=== PATIENT | female | born 1960 | race Caucasian/White ===

== ENCOUNTER 2019-12-07 08:03 | Day surgery (SDC) | payer MEDICARE, MEDICAID ==
[2019-11-30 14:37] LABS: BASOPHILS # (AUTO) 0.1 X10'3 (0-0.2); EOSINOPHILS # (AUTO) 0.5 X10'3 (0-0.9); EOSINOPHILS % (AUTO) 5.1 % (0-6); LYMPHOCYTES # (AUTO) 3.6 X10'3 (1.1-4.8); LYMPHOCYTES % (AUTO) 37.4 % (21-51); MEAN CORPUSCULAR HEMOGLOBIN 32.8 PG (27.0-31.0); MEAN CORPUSCULAR HGB CONC 33.4 g/dL (33.0-36.5); MEAN CORPUSCULAR VOLUME 98.3 FL (78-98); MEAN PLATELET VOLUME 9.5 FL (7.4-10.4); MONOCYTES # (AUTO) 0.7 X10'3 (0-0.9); NEUTROPHILS # (AUTO) 4.8 X10'3 (1.8-7.7); NEUTROPHILS % (AUTO) 49.5 % (42-75); PRE OP HEMATOCRIT 45.1 % (35.0-45.0); PRE OP HEMOGLOBIN 15.1 g/dL (12.0-16.0); PRE OP PLATELET COUNT 295 X10'3 (140-440); RED BLOOD COUNT 4.59 X10'6 (4.20-5.60); RED CELL DISTRIBUTION WIDTH 14.1 % (11.5-14.5)
[2019-11-30 14:51] LABS: ALBUMIN 3.9 G/DL (3.4-5.0); ALBUMIN/GLOBULIN RATIO 1.1 (1.1-1.5); ALKALINE PHOSPHATASE 110 IU/L (46-116); BLOOD UREA NITROGEN 10 MG/DL (7-18); BUN/CREATININE RATIO 11.4 (6.6-38.0); CALCIUM 9.1 MG/DL (8.5-10.1); CHLORIDE 107 MMOL/L (99-107); CREATININE 0.88 MG/DL (0.40-0.90); PRE OP ALT 35 U/L (30-65); PRE OP ANION GAP 4 (8-16); PRE OP AST 19 U/L (10-37); PRE OP BILIRUB, TOTAL 0.2 MG/DL (0.0-1.0); PRE OP GLUCOSE 161 MG/DL (70-104); PRE OP SODIUM 141 MMOL/L (135-145); TOTAL CARBON DIOXIDE 30.3 MMOL/L (24-32); TOTAL PROTEIN 7.4 G/DL (6.4-8.2); eGFR 66 ML/MIN
[~2019-12-07] VITALS: Ht 175.3 cm; Wt 89.4 kg
[2019-12-07] VITALS (7 sets, daily range): BP systolic 119–135; BP diastolic 59–76
[~2019-12-07 08:03] MED LIST: ATOR40TA72 PO; CHOL100017 PO; CLON-372 PO; CLON-568 PO; IBUP-1986 PO; LAMO200T10 PO; LIRA0.6P2 SQ; LITH450T2 PO; METF1000 PO; OLAN20TA34 PO; QUET400T12 PO; TRAZ150T78 PO; cefazolin/dext.iso 2gm/50ml 50 ML IV ONE; famotidine 20mg tablet PO ONE; ringers solution, lacted 1,000 ML IV SCH
[2019-12-07] MEDS ORDERED: albuterol 2.5 MG/3 ML nebule NEB PRN (09:20)
[2019-12-07] MEDS ORDERED: famotidine 20mg tablet PO ONE (09:20)
[2019-12-07] MEDS ORDERED: bacitracin 15gm ointment TP ONE (10:07)
[2019-12-07] MEDS ORDERED: sevoflurane 250ml liquid IH ONE (10:37)
[2019-12-07] MEDS ORDERED: MIDAZolam 5mg/5ml vial ONE (10:42)
[2019-12-07] MEDS ORDERED: fentaNYL/PF 50MCG/1 ML 2ML syringe ONE (10:42)
[2019-12-07] MEDS ORDERED: LIDOcaine 1%/PF 5ML 10 MG/ML VIAL ONE (12:00)
[2019-12-07] MEDS ORDERED: rocuronium 10mg/ml inj IV ONE (12:00)
[2019-12-07] MEDS ORDERED: ondansetron/PF 4mg/2ml inj ONE (12:00)
[2019-12-07] MEDS ORDERED: dexamethasone sod phosphate 4mg/ml inj. ONE (12:00)
[2019-12-07] MEDS ORDERED: neostigmine methylsulfate 1 MG/ML 10ml vial ONE (12:00)
[2019-12-07] MEDS ORDERED: ROPIVAcaine 0.5% (5mg/ml) 30ml vial ONE (12:00)
[2019-12-07] MEDS ORDERED: glycopyrrolate 0.2mg/ml inj ONE (12:00)
[2019-12-07] MEDS ORDERED: propofol inj 20 ML IV ONE (12:00)
[2019-12-07] MEDS ORDERED: flumazenil 0.1 mg/ml inj. IV ONE (12:22)
[2019-12-07] MEDS ORDERED: albuterol 60 PUFF/8GM Inhaler IH ONE (12:26)
--- NOTE | 2019-12-07 12:28 | NUR ---
Received from OR via JOLENE , accompanied by Anesthesiologist KEISHA and report given by Anesthesiolgist. PATIENT WITH 20G PIV IN LEFT UE RUNNING LR AT 100. VSS. 10L MASK ON WITH 100% SATURATIONS. LEFT ANKLE IS ELEVATED, + CAP REFILL. SPLINT PRESENT AND CDIVSS Addendum: 12/07/19 at 1248 by Ezekiel Yeager RN, RN Amended: Links added.
[2019-12-07] MEDS ORDERED: ringers solution, lacted 1,000 ML IV SCH (13:07)
[2019-12-07] MEDS ORDERED: meperidine/PF 25mg/ml syringe IV PRN ×3 (13:10)
[2019-12-07] MEDS ORDERED: ondansetron/PF 4mg/2ml inj IV PRN (13:10)
[2019-12-07] MEDS ORDERED: morphine 4 MG/ML inj SYRINge IV PRN (13:10)
[2019-12-07] MEDS ORDERED: morphine 2 MG/ML inj. syringe IV PRN (13:10)
[2019-12-07] MEDS ORDERED: proCHLORperazine 10 MG/2 ml inj IV PRN (13:10)
--- NOTE | 2019-12-07 13:28 | NUR ---
All dc criteria for discharge home has been met. IV taken out without complications. All questions answered regarding dc paperwork. Vss. Significant other present to take patient home. Dressings cdi and vital signs stable. Taken out via wheelchair to personal vehicle where patient taken home by CAREGIVER. .ALL DC INSTRUCTIONS COVERED WITH CAREGIVER. VSS. DDRESSING CDI AND NON WEIGHT BEARING STATUS MAINTAINED DURING TRANSFER Addendum: 12/07/19 at 1341 by Ezekiel Yeager RN, RN Amended: Links added.
== END 2019-12-07 13:28 | disposition home or self-care (01) ==
LOC: PAS 08:03
PROVIDERS: ATTEND Podiatrist Foot & Ankle Surgery
DX: M76.62 Achilles tendinitis, left leg (principal); M77.32 Calcaneal spur, left foot; M21.6X2 Other acquired deformities of left foot; F25.9 Schizoaffective disorder, unspecified; F41.8 Other specified anxiety disorders; Z98.890 Other specified postprocedural states; E11.9 Type 2 diabetes mellitus without complications; M19.90 Unspecified osteoarthritis, unspecified site; Z87.891 Personal history of nicotine dependence; Z90.49 Acquired absence of other specified parts of digestive tract; Z11.59 Encounter for screening for other viral diseases
CPT/HCPCS: 27650; 27687; 28119; 36415; 73600; 76000; 80053; 82948; 85025; 93005; 94640; 94760; A6222; A6223; C1713; J1100; J2250; J2405; J2704; J2710; J3010; J7120; U0003; A4215; A4618; A6253; A6446; A6449; A7000; J2795; J3490

== ENCOUNTER 2020-03-05 19:18 | Emergency (ER) | payer MEDICARE, MEDICAID ==
[~2020-03-05] VITALS: Ht 175.3 cm; Wt 86.4 kg
[~2020-03-05 19:18] MED LIST changes: -cefazolin/dext.iso 2gm/50ml 50 ML IV ONE; -famotidine 20mg tablet PO ONE; -ringers solution, lacted 1,000 ML IV SCH
[2020-03-05 19:48] LABS: BASOPHILS # (AUTO) 0.1 X10'3 (0-0.2); BASOPHILS % (AUTO) 0.5 % (0-1); EOSINOPHILS # (AUTO) 0.2 X10'3 (0-0.9); EOSINOPHILS % (AUTO) 1.6 % (0-6); HEMATOCRIT 43.3 % (35.0-45.0); HEMOGLOBIN 14.5 g/dl (12.0-16.0); LYMPHOCYTES # (AUTO) 3.1 X10'3 (1.1-4.8); LYMPHOCYTES % (AUTO) 29.7 % (21-51); MEAN CORPUSCULAR HEMOGLOBIN 32.5 PG (27.0-31.0); MEAN CORPUSCULAR HGB CONC 33.5 g/dL (33.0-36.5); MONOCYTES # (AUTO) 0.8 X10'3 (0-0.9); MONOCYTES % (AUTO) 7.4 % (2-12); NEUTROPHILS # (AUTO) 6.2 X10'3 (1.8-7.7); NEUTROPHILS % (AUTO) 60.8 % (42-75); PLATELET COUNT 262 X10'3 (140-440); RED BLOOD COUNT 4.47 X10'6 (4.20-5.60); RED CELL DISTRIBUTION WIDTH 13.8 % (11.5-14.5); WHITE BLOOD COUNT 10.3 X10'3 (4.5-11.0)
[2020-03-05 20:08] LABS: ALANINE AMINOTRANSFERASE 27 U/L (12-78); ALBUMIN 4.1 G/DL (3.4-5.0); ALBUMIN/GLOBULIN RATIO 1.2 (1.1-1.5); ALKALINE PHOSPHATASE 92 IU/L (46-116); ANION GAP 7 (8-16); ASPARTATE AMINO TRANSFERASE 23 U/L (10-37); BILIRUBIN,TOTAL 0.2 MG/DL (0.1-1.0); BLOOD UREA NITROGEN 14 MG/DL (7-18); BUN/CREATININE RATIO 13.5 (6.6-38.0); CALCIUM 9.7 MG/DL (8.5-10.1); CHLORIDE 104 MMOL/L (99-107); CREATININE 1.04 MG/DL (0.40-0.90); GLUCOSE 205 MG/DL (70-104); POTASSIUM 4.2 MMOL/L (3.5-5.1); SODIUM 138 MMOL/L (135-145); TOTAL CARBON DIOXIDE 27.4 MMOL/L (24-32); TOTAL PROTEIN 7.5 G/DL (6.4-8.2); eGFR 54 ML/MIN
--- NOTE | 2020-03-05 20:50 | NUR ---
MALVIN [phone] Addendum: 03/05/20 at 2052 by LSTOCKTON malvin [phone] cell she is waiting in the car to give pt a ride if pt is medically cleared
--- NOTE | 2020-03-05 21:12 | NUR ---
pt back from ct
[2020-03-05 21:18] VITALS: BP 137/71
== END 2020-03-05 21:40 | disposition home or self-care (01) ==
LOC: ER 19:20
DX: S00.31XA Abrasion of nose, initial encounter (principal); R42 Dizziness and giddiness; E11.9 Type 2 diabetes mellitus without complications; G89.29 Other chronic pain; F41.9 Anxiety disorder, unspecified; F32.9 Major depressive disorder, single episode, unspecified; F20.9 Schizophrenia, unspecified; Z90.49 Acquired absence of other specified parts of digestive tract; Z90.710 Acquired absence of both cervix and uterus; Z72.89 Other problems related to lifestyle; Z60.2 Problems related to living alone; Z56.0 Unemployment, unspecified; Z79.899 Other long term (current) drug therapy; W19.XXXA Unspecified fall, initial encounter; Y93.89 Activity, other specified; Y92.89 Other specified places as the place of occurrence of the external cause; Y99.8 Other external cause status
CPT/HCPCS: 36415; 70450; 71045; 80053; 83880; 84484; 85025; 93005; 99285

== ENCOUNTER 2020-08-10 14:25 | Emergency (ER) | payer MEDICARE, MEDICAID ==
[~2020-08-10] VITALS: Ht 175.3 cm; Wt 85.5 kg
[~2020-08-10 14:25] MED LIST changes: +ASPI-1397 PO; -CHOL100017 PO; +CHOL20002 PO; -CLON-372 PO; +GABA300T25 PO; -IBUP-1986 PO; -LIRA0.6P2 SQ; +METF-950 PO; -METF1000 PO
[2020-08-10] MEDS ORDERED: meclizine 12.5mg tablet PO ONE (14:45)
--- NOTE | 2020-08-10 15:05 | NUR ---
to ct scan via [place]
[2020-08-10 15:13] LABS: BASOPHILS # (AUTO) 0.1 X10'3 (0-0.2); BASOPHILS % (AUTO) 0.6 % (0-1); EOSINOPHILS # (AUTO) 0.1 X10'3 (0-0.9); EOSINOPHILS % (AUTO) 1.5 % (0-6); HEMATOCRIT 38.5 % (35.0-45.0); HEMOGLOBIN 13.2 g/dl (12.0-16.0); LYMPHOCYTES # (AUTO) 3.2 X10'3 (1.1-4.8); LYMPHOCYTES % (AUTO) 38.7 % (21-51); MEAN CORPUSCULAR HEMOGLOBIN 32.8 PG (27.0-31.0); MEAN CORPUSCULAR HGB CONC 34.2 g/dL (33.0-36.5); MEAN CORPUSCULAR VOLUME 95.9 FL (78-98); MEAN PLATELET VOLUME 9.3 FL (7.4-10.4); MONOCYTES # (AUTO) 0.5 X10'3 (0-0.9); MONOCYTES % (AUTO) 6.5 % (2-12); NEUTROPHILS # (AUTO) 4.4 X10'3 (1.8-7.7); NEUTROPHILS % (AUTO) 52.7 % (42-75); PLATELET COUNT 277 X10'3 (140-440); RED BLOOD COUNT 4.01 X10'6 (4.20-5.60); RED CELL DISTRIBUTION WIDTH 14.2 % (11.5-14.5); WHITE BLOOD COUNT 8.4 X10'3 (4.5-11.0)
[2020-08-10 15:22] LABS: ALANINE AMINOTRANSFERASE 23 U/L (12-78); ALBUMIN 3.8 G/DL (3.4-5.0); ALBUMIN/GLOBULIN RATIO 1.2 (1.1-1.5); ALKALINE PHOSPHATASE 94 IU/L (46-116); ANION GAP 5 (8-16); ASPARTATE AMINO TRANSFERASE 10 U/L (10-37); BILIRUBIN,TOTAL 0.3 MG/DL (0.1-1.0); BLOOD UREA NITROGEN 13 MG/DL (7-18); BUN/CREATININE RATIO 16.9 (6.6-38.0); CALCIUM 10.1 MG/DL (8.5-10.1); CHLORIDE 107 MMOL/L (99-107); CREATININE 0.77 MG/DL (0.40-0.90); GLUCOSE 133 MG/DL (70-104); POTASSIUM 4.2 MMOL/L (3.5-5.1); SODIUM 141 MMOL/L (135-145); TOTAL CARBON DIOXIDE 29.3 MMOL/L (24-32); eGFR 76 ML/MIN
[2020-08-10] MEDS ORDERED: MECL-159 PO (15:34)
[2020-08-10 15:51] VITALS: BP 132/67
== END 2020-08-10 15:53 | disposition home or self-care (01) ==
LOC: ER 14:25
DX: R42 Dizziness and giddiness (principal); E11.9 Type 2 diabetes mellitus without complications; G89.29 Other chronic pain; Z90.49 Acquired absence of other specified parts of digestive tract; Z90.710 Acquired absence of both cervix and uterus; Z72.89 Other problems related to lifestyle; Z59.0 Homelessness; Z79.82 Long term (current) use of aspirin; Z79.899 Other long term (current) drug therapy
CPT/HCPCS: 36415; 70450; 80053; 85025; 93005; 99285; J8597

== ENCOUNTER 2020-08-26 01:07 | Emergency (ER) | payer MEDICARE, MEDICAID ==
[~2020-08-26] VITALS: Ht 175.3 cm; Wt 86.4 kg
[~2020-08-26 01:07] MED LIST changes: +MECL-159 PO; -METF-950 PO
[2020-08-26 01:59] LABS: BASOPHILS # (AUTO) 0.1 X10'3 (0-0.2); BASOPHILS % (AUTO) 0.7 % (0-1); EOSINOPHILS # (AUTO) 0.3 X10'3 (0-0.9); EOSINOPHILS % (AUTO) 3.8 % (0-6); HEMATOCRIT 37.3 % (35.0-45.0); HEMOGLOBIN 12.7 g/dl (12.0-16.0); LYMPHOCYTES # (AUTO) 2.7 X10'3 (1.1-4.8); LYMPHOCYTES % (AUTO) 30.1 % (21-51); MEAN CORPUSCULAR HEMOGLOBIN 32.8 PG (27.0-31.0); MEAN CORPUSCULAR HGB CONC 34.1 g/dL (33.0-36.5); MEAN PLATELET VOLUME 9.8 FL (7.4-10.4); MONOCYTES # (AUTO) 0.7 X10'3 (0-0.9); MONOCYTES % (AUTO) 8.3 % (2-12); NEUTROPHILS # (AUTO) 5.1 X10'3 (1.8-7.7); NEUTROPHILS % (AUTO) 57.1 % (42-75); PLATELET COUNT 257 X10'3 (140-440); RED BLOOD COUNT 3.89 X10'6 (4.20-5.60); RED CELL DISTRIBUTION WIDTH 14.1 % (11.5-14.5); WHITE BLOOD COUNT 8.9 X10'3 (4.5-11.0)
[2020-08-26 02:00] VITALS: BP 132/69
[2020-08-26 02:07] LABS: ALANINE AMINOTRANSFERASE 27 U/L (12-78); ALBUMIN 3.5 G/DL (3.4-5.0); ALBUMIN/GLOBULIN RATIO 1.1 (1.1-1.5); ALKALINE PHOSPHATASE 90 IU/L (46-116); ANION GAP 7 (8-16); ASPARTATE AMINO TRANSFERASE 12 U/L (10-37); BILIRUBIN,TOTAL 0.2 MG/DL (0.1-1.0); BLOOD UREA NITROGEN 15 MG/DL (7-18); BUN/CREATININE RATIO 19.2 (6.6-38.0); CALCIUM 9.7 MG/DL (8.5-10.1); CHLORIDE 109 MMOL/L (99-107); CREATININE 0.78 MG/DL (0.40-0.90); GLUCOSE 139 MG/DL (70-104); MAGNESIUM 2.3 MG/DL (1.5-2.4); POTASSIUM 3.3 MMOL/L (3.5-5.1); SODIUM 143 MMOL/L (135-145); TOTAL CARBON DIOXIDE 27.2 MMOL/L (24-32); TOTAL PROTEIN 6.8 G/DL (6.4-8.2); eGFR 75 ML/MIN
--- NOTE | 2020-08-26 02:24 | NUR ---
DR MACE TALKING WITH PT ABOUT DC. PT INSTRUCTED TO F/U WITH PCP.
== END 2020-08-26 03:17 | disposition home or self-care (01) ==
LOC: ER 01:07
DX: R00.2 Palpitations (principal); R07.89 Other chest pain; R06.02 Shortness of breath; R42 Dizziness and giddiness; E11.9 Type 2 diabetes mellitus without complications; G89.29 Other chronic pain; F41.9 Anxiety disorder, unspecified; F32.9 Major depressive disorder, single episode, unspecified; F20.9 Schizophrenia, unspecified; Z90.49 Acquired absence of other specified parts of digestive tract; Z90.710 Acquired absence of both cervix and uterus; Z72.89 Other problems related to lifestyle; Z60.2 Problems related to living alone; Z56.0 Unemployment, unspecified; Z79.82 Long term (current) use of aspirin; Z79.899 Other long term (current) drug therapy
CPT/HCPCS: 36415; 71045; 80053; 83735; 84484; 85025; 93005; 99285

== ENCOUNTER 2020-09-12 17:05 | Emergency (ER) | payer MEDICARE, MEDICAID ==
[~2020-09-12] VITALS: Ht 175.3 cm; Wt 86.4 kg
[2020-09-12 17:36] LABS: BASOPHILS # (AUTO) 0.1 X10'3 (0-0.2); BASOPHILS % (AUTO) 0.6 % (0-1); EOSINOPHILS # (AUTO) 0.2 X10'3 (0-0.9); EOSINOPHILS % (AUTO) 2.1 % (0-6); HEMATOCRIT 42.8 % (35.0-45.0); HEMOGLOBIN 14.3 g/dl (12.0-16.0); LYMPHOCYTES # (AUTO) 2.8 X10'3 (1.1-4.8); LYMPHOCYTES % (AUTO) 31.3 % (21-51); MEAN CORPUSCULAR HEMOGLOBIN 32.5 PG (27.0-31.0); MEAN CORPUSCULAR HGB CONC 33.4 g/dL (33.0-36.5); MEAN CORPUSCULAR VOLUME 97.1 FL (78-98); MEAN PLATELET VOLUME 9.6 FL (7.4-10.4); MONOCYTES # (AUTO) 0.7 X10'3 (0-0.9); MONOCYTES % (AUTO) 7.2 % (2-12); NEUTROPHILS # (AUTO) 5.3 X10'3 (1.8-7.7); NEUTROPHILS % (AUTO) 58.8 % (42-75); PLATELET COUNT 274 X10'3 (140-440); RED BLOOD COUNT 4.41 X10'6 (4.20-5.60); RED CELL DISTRIBUTION WIDTH 13.6 % (11.5-14.5); WHITE BLOOD COUNT 9.1 X10'3 (4.5-11.0)
[2020-09-12 17:49] LABS: ALANINE AMINOTRANSFERASE 45 U/L (12-78); ALBUMIN 4.1 G/DL (3.4-5.0); ALBUMIN/GLOBULIN RATIO 1.1 (1.1-1.5); ALKALINE PHOSPHATASE 146 IU/L (46-116); ANION GAP 8 (8-16); ASPARTATE AMINO TRANSFERASE 25 U/L (10-37); BILIRUBIN,TOTAL 0.2 MG/DL (0.1-1.0); BLOOD UREA NITROGEN 5 MG/DL (7-18); BUN/CREATININE RATIO 6.3 (6.6-38.0); CHLORIDE 106 MMOL/L (99-107); CREATININE 0.79 MG/DL (0.40-0.90); GLUCOSE 133 MG/DL (70-104); POTASSIUM 3.9 MMOL/L (3.5-5.1); SODIUM 144 MMOL/L (135-145); TOTAL CARBON DIOXIDE 29.7 MMOL/L (24-32); TOTAL PROTEIN 7.8 G/DL (6.4-8.2); eGFR 74 ML/MIN
[2020-09-12 17:58] LABS: ETHANOL < 0.010 GM/DL (0.0-0.010)
[2020-09-12 18:31] LABS: CLARITY,URINE CLEAR (Clear); COLOR,URINE STRAW (Yellow); GLUCOSE, URINE NEGATIVE (Neg); KETONES,URINE NEGATIVE (Neg); LEUKOCYTE ESTERASE ,URINE TRACE (Neg); NITRITES, URINE NEGATIVE (Neg); OCCULT BLOOD,URINE NEGATIVE (Neg); PH,URINE 7.5 (4.8-8.0); PROTEIN,URINE NEGATIVE (Neg); UROBILINOGEN,URINE 0.2 E.U/dL (0.2-1.0)
[2020-09-12 18:32] LABS: UA COLLECTION TYPE CLN CATCH MIDSTREAM
[2020-09-12 18:39] LABS: URINE AMPHETAMINE SCREEN NEGATIVE (Neg); URINE BARBITUATE SCREEN NEGATIVE (Neg); URINE BENZODIAZEPINES SCREEN NEGATIVE (Neg); URINE CANNABINOID SCREEN NEGATIVE (Neg); URINE COCAINE SCREEN NEGATIVE (Neg); URINE METHADONE SCREEN NEGATIVE (Neg); URINE OPIATE SCREEN NEGATIVE (Neg); URINE PHENCYCLIDINE SCREEN NEGATIVE (Neg)
[2020-09-12 18:47] LABS: BACTERIA,URINE 1+ /HPF (Neg); MUCUS STRANDS NONE SEEN /LPF (Neg); RBC,URINE NONE SEEN /HPF (0-2); SQUAMOUS EPITHELIAL CELL,UR FEW /LPF (FEW); WBC,URINE 0-4 /HPF (0-4)
--- NOTE | 2020-09-12 20:19 | NUR ---
PATIENT WANDERING IN HALLWAY THREATENS TO LEAVE DR BARILLAS ADVISED HE WAS GOING TO REVIEW HER MEDICATIONS, WHEN LEFT ROOM SHE DENIED SPEAKING WITH THE MD
[2020-09-12] MEDS ORDERED: LORazepam 1 MG tablet PO ONE (20:20)
[2020-09-12] MEDS ORDERED: clonazePAM 1mg tablet PO PRN (20:50)
[2020-09-12] MEDS ORDERED: GABA300C PO (20:57)
[2020-09-12] MEDS ORDERED: traZODone 150mg tablet PO SCH (21:00)
[2020-09-12] MEDS ORDERED: gabapentin 300mg capsule PO SCH (21:00)
[2020-09-12] MEDS ORDERED: olanzapine 10mg tablet PO SCH (21:00)
[2020-09-12] MEDS ORDERED: quetiapine 100mg tablet PO SCH (21:00)
[2020-09-12] MEDS ORDERED: meclizine 12.5mg tablet PO PRN (21:05)
--- NOTE | 2020-09-12 21:15 | NUR ---
Patient wondering out of room, patient asking for medication and asking to leave. Patient states that she is not suicidal, she mentioned to her doctor that she was suicidal on Tuesday, but is no longer suicidal and she wants to go home. Patient asking for physician, physician spoke to patient, awaiting medication from pharmacy
--- NOTE | 2020-09-12 23:35 | NUR ---
Patient sleeping, able to visualize patient
--- NOTE | 2020-09-13 01:15 | NUR ---
Patient got up and wandered out of room. Patient redirected back to her bed, positioned for comfort and given warm blankets. In view of RN station.
--- NOTE | 2020-09-13 06:40 | NUR ---
Pt ambulated from main ED to Bed 21. Pt states, "you all really know how to trick people, don't you?"
[2020-09-13 07:02] VITALS: BP 157/81
--- NOTE | 2020-09-13 07:30 | NUR ---
Pt sleeping, respirations unlabored, NAD
[2020-09-13] MEDS ORDERED: atorvastatin 20mg tablet PO SCH (08:00)
[2020-09-13] MEDS ORDERED: vitamin D (cholecalciferol) 1,000 unit tablet PO SCH (08:00)
[2020-09-13] MEDS ORDERED: lamoTRIgine 100mg tablet PO SCH (08:00)
[2020-09-13] MEDS ORDERED: aspirin 81mg tablet.DR PO SCH (08:00)
--- NOTE | 2020-09-13 08:23 | NUR ---
Pt took morning meds without difficulty. When pt asked about what brought her to the ER yesterday. Pt states that she was at her doctor's office when she told them that she just didn't feel like living anymore. Pt states that she would never do it to herself, but she just wants to not feel like that anymore. Pt states that she was at the circus and it made her feel better for a little bit, but then it was bad again.
--- NOTE | 2020-09-13 08:38 | NUR ---
[facility] worker at bedside talking with pt.
--- NOTE | 2020-09-13 09:10 | NUR ---
[facility] worker spoke with the pt's friend who sets up the pt's meds. [facility] worker states that she is going to release the pt home. Let pt know that we will get her discharge papers around and let her know when they are ready.
--- NOTE | 2020-09-13 09:50 | NUR ---
Called [facility] for the pt. They said it will be about an hour wait. Addendum: 09/13/20 at 0953 by [email or web address] Let [employer] cab know that the pt has to be home by 11. Pt is going to get the number of her [facility] worker, Romel out of her wallet and see if he can come get her on the way to her house.
--- NOTE | 2020-09-13 10:06 | NUR ---
Spoke with pt's [facility] worker, Romel. He will come get the pt. He will be here at 11 as that is when he starts working for the pt.
--- NOTE | 2020-09-13 10:24 | NUR ---
Gave pt fresh ice water. Pt is dressed and just sitting in her bed waiting for Romel to come.
== END 2020-09-13 11:13 | disposition home or self-care (01) ==
LOC: ER 17:07
DX: R45.851 Suicidal ideations (principal); E11.9 Type 2 diabetes mellitus without complications; G89.29 Other chronic pain; F41.9 Anxiety disorder, unspecified; F32.9 Major depressive disorder, single episode, unspecified; F20.9 Schizophrenia, unspecified; Z90.49 Acquired absence of other specified parts of digestive tract; Z90.710 Acquired absence of both cervix and uterus; Z72.89 Other problems related to lifestyle; Z60.2 Problems related to living alone; Z56.0 Unemployment, unspecified; Z79.82 Long term (current) use of aspirin; Z79.899 Other long term (current) drug therapy
CPT/HCPCS: 36415; 80053; 80178; 80305; 80320; 81001; 84443; 85025; 99285

== ENCOUNTER 2020-10-30 17:00 | Emergency (ER) | payer MEDICARE, MEDICAID ==
[~2020-10-30] VITALS: Ht 175.3 cm; Wt 85.9 kg
[~2020-10-30 17:00] MED LIST changes: +GABA300C PO; -GABA300T25 PO
[2020-10-30 17:04] VITALS: BP 133/62
--- NOTE | 2020-10-30 19:33 | NUR ---
PATIENT C/P 02/17 NOSE PAIN, PA PEDRITO AWARE OF PAIN AND PA AWARE OF PREVIOUS SKIN CANCER REMOVAL NEAR SITE OF SCAB ON NOSE
[2020-10-30] MEDS ORDERED: MUPI22OI30 TOP (19:51)
[2020-10-30] MEDS ORDERED: SULF1TAB49 PO (19:51)
== END 2020-10-30 20:03 | disposition home or self-care (01) ==
LOC: ER 17:01
DX: S01.20XA Unspecified open wound of nose, initial encounter (principal); E11.9 Type 2 diabetes mellitus without complications; G89.29 Other chronic pain; F41.9 Anxiety disorder, unspecified; F32.9 Major depressive disorder, single episode, unspecified; F20.9 Schizophrenia, unspecified; Z90.49 Acquired absence of other specified parts of digestive tract; Z90.710 Acquired absence of both cervix and uterus; Z72.89 Other problems related to lifestyle; Z60.2 Problems related to living alone; Z56.0 Unemployment, unspecified; Z79.82 Long term (current) use of aspirin; Z79.2 Long term (current) use of antibiotics; Z79.899 Other long term (current) drug therapy; X58.XXXA Exposure to other specified factors, initial encounter; Y93.89 Activity, other specified; Y92.89 Other specified places as the place of occurrence of the external cause; Y99.8 Other external cause status
CPT/HCPCS: 99283

== ENCOUNTER 2021-04-30 21:28 | Emergency (ER) | payer MEDICARE, MEDICAID ==
[~2021-04-30] VITALS: Ht 175.3 cm; Wt 91.4 kg
[~2021-04-30 21:28] MED LIST changes: -QUET400T12 PO; +QUET400T13 PO
[2021-04-30 22:00] LABS: BASOPHILS % (AUTO) 0.6 % (0-1); EOSINOPHILS # (AUTO) 0.2 X10'3 (0-0.9); EOSINOPHILS % (AUTO) 1.9 % (0-6); HEMATOCRIT 40.9 % (35.0-45.0); HEMOGLOBIN 13.6 g/dl (12.0-16.0); LYMPHOCYTES # (AUTO) 2.4 X10'3 (1.1-4.8); LYMPHOCYTES % (AUTO) 27.5 % (21-51); MEAN CORPUSCULAR HEMOGLOBIN 32.3 PG (27.0-31.0); MEAN CORPUSCULAR HGB CONC 33.3 g/dL (33.0-36.5); MEAN CORPUSCULAR VOLUME 96.9 FL (78-98); MEAN PLATELET VOLUME 9.2 FL (7.4-10.4); MONOCYTES # (AUTO) 0.8 X10'3 (0-0.9); MONOCYTES % (AUTO) 9.3 % (2-12); NEUTROPHILS # (AUTO) 5.3 X10'3 (1.8-7.7); NEUTROPHILS % (AUTO) 60.7 % (42-75); PLATELET COUNT 267 X10'3 (140-440); RED BLOOD COUNT 4.22 X10'6 (4.20-5.60); RED CELL DISTRIBUTION WIDTH 13.4 % (11.5-14.5); WHITE BLOOD COUNT 8.7 X10'3 (4.5-11.0)
[2021-04-30 22:11] LABS: ALANINE AMINOTRANSFERASE 51 U/L (12-78); ALBUMIN 3.7 G/DL (3.4-5.0); ALBUMIN/GLOBULIN RATIO 1.1 (1.1-1.5); ALKALINE PHOSPHATASE 89 IU/L (46-116); ANION GAP 10 (8-16); ASPARTATE AMINO TRANSFERASE 20 U/L (10-37); BILIRUBIN,TOTAL 0.2 MG/DL (0.1-1.0); BLOOD UREA NITROGEN 15 MG/DL (7-18); BUN/CREATININE RATIO 19.5 (6.6-38.0); CALCIUM 9.8 MG/DL (8.5-10.1); CHLORIDE 111 MMOL/L (99-107); CREATININE 0.77 MG/DL (0.40-0.90); GLUCOSE 203 MG/DL (70-104); POTASSIUM 3.9 MMOL/L (3.5-5.1); SODIUM 147 MMOL/L (135-145); TOTAL CARBON DIOXIDE 25.8 MMOL/L (24-32); TOTAL PROTEIN 7.1 G/DL (6.4-8.2); eGFR 76 ML/MIN
[2021-04-30 22:52] VITALS: BP 130/74
== END 2021-04-30 23:04 | disposition home or self-care (01) ==
LOC: ER 21:29
DX: R06.02 Shortness of breath (principal); R07.89 Other chest pain; E11.9 Type 2 diabetes mellitus without complications; G89.29 Other chronic pain; F41.9 Anxiety disorder, unspecified; F32.9 Major depressive disorder, single episode, unspecified; F20.9 Schizophrenia, unspecified; F17.200 Nicotine dependence, unspecified, uncomplicated; Z90.49 Acquired absence of other specified parts of digestive tract; Z90.710 Acquired absence of both cervix and uterus; Z72.89 Other problems related to lifestyle; Z60.2 Problems related to living alone; Z56.0 Unemployment, unspecified; Z79.82 Long term (current) use of aspirin; Z79.899 Other long term (current) drug therapy
CPT/HCPCS: 36415; 71045; 80053; 83880; 84484; 85025; 93005; 99285

== ENCOUNTER 2021-07-06 13:47 | Emergency (ER) | payer MEDICARE, MEDICAID ==
[~2021-07-06] VITALS: Ht 175.3 cm; Wt 91.8 kg
[2021-07-06 15:00] VITALS: BP 138/71
[2021-07-06 15:25] LABS: BASOPHILS # (AUTO) 0.1 X10'3 (0-0.2); EOSINOPHILS # (AUTO) 0.1 X10'3 (0-0.9); EOSINOPHILS % (AUTO) 1.1 % (0-6); HEMATOCRIT 43.6 % (35.0-45.0); HEMOGLOBIN 14.7 g/dl (12.0-16.0); LYMPHOCYTES # (AUTO) 2.3 X10'3 (1.1-4.8); LYMPHOCYTES % (AUTO) 35.3 % (21-51); MEAN CORPUSCULAR HEMOGLOBIN 31.7 PG (27.0-31.0); MEAN CORPUSCULAR HGB CONC 33.7 g/dL (33.0-36.5); MEAN CORPUSCULAR VOLUME 94.2 FL (78-98); MEAN PLATELET VOLUME 9.3 FL (7.4-10.4); MONOCYTES # (AUTO) 0.4 X10'3 (0-0.9); MONOCYTES % (AUTO) 6.3 % (2-12); NEUTROPHILS # (AUTO) 3.7 X10'3 (1.8-7.7); NEUTROPHILS % (AUTO) 56.3 % (42-75); PLATELET COUNT 320 X10'3 (140-440); RED BLOOD COUNT 4.63 X10'6 (4.20-5.60); WHITE BLOOD COUNT 6.6 X10'3 (4.5-11.0)
[2021-07-06 15:35] LABS: ALANINE AMINOTRANSFERASE 62 U/L (12-78); ALBUMIN 4.1 G/DL (3.4-5.0); ALBUMIN/GLOBULIN RATIO 1.1 (1.1-1.5); ALKALINE PHOSPHATASE 94 IU/L (46-116); ANION GAP 12 (8-16); ASPARTATE AMINO TRANSFERASE 28 U/L (10-37); BILIRUBIN,TOTAL 0.3 MG/DL (0.1-1.0); BLOOD UREA NITROGEN 21 MG/DL (7-18); BUN/CREATININE RATIO 24.7 (6.6-38.0); CALCIUM 10.1 MG/DL (8.5-10.1); CHLORIDE 104 MMOL/L (99-107); CREATININE 0.85 MG/DL (0.40-0.90); GLUCOSE 249 MG/DL (70-104); POTASSIUM 4.4 MMOL/L (3.5-5.1); SODIUM 142 MMOL/L (135-145); TOTAL CARBON DIOXIDE 26.4 MMOL/L (24-32); TOTAL PROTEIN 7.7 G/DL (6.4-8.2); eGFR 68 ML/MIN
== END 2021-07-06 17:50 | disposition left against medical advice (07) ==
LOC: ER 13:48
DX: R07.89 Other chest pain (principal); E11.9 Type 2 diabetes mellitus without complications; G89.29 Other chronic pain; Z90.49 Acquired absence of other specified parts of digestive tract; Z72.89 Other problems related to lifestyle; Z56.0 Unemployment, unspecified; Z79.82 Long term (current) use of aspirin; Z79.899 Other long term (current) drug therapy; Z90.710 Acquired absence of both cervix and uterus
CPT/HCPCS: 36415; 71045; 80053; 83880; 84484; 85025; 93005; 99285

== ENCOUNTER 2021-08-28 12:50 | Emergency (ER) | payer MEDICARE, MEDICAID ==
[~2021-08-28] VITALS: Ht 170.2 cm; Wt 92.0 kg
[2021-08-28 13:20] VITALS: BP 144/75
[2021-08-28 14:36] LABS: BASOPHILS # (AUTO) 0.1 X10'3 (0-0.2); BASOPHILS % (AUTO) 0.7 % (0-1); EOSINOPHILS # (AUTO) 0.1 X10'3 (0-0.9); EOSINOPHILS % (AUTO) 1.2 % (0-6); HEMATOCRIT 43.6 % (35.0-45.0); HEMOGLOBIN 14.9 g/dl (12.0-16.0); LYMPHOCYTES # (AUTO) 3.2 X10'3 (1.1-4.8); LYMPHOCYTES % (AUTO) 35.8 % (21-51); MEAN CORPUSCULAR HEMOGLOBIN 32.1 PG (27.0-31.0); MEAN CORPUSCULAR HGB CONC 34.2 g/dL (33.0-36.5); MEAN CORPUSCULAR VOLUME 93.8 FL (78-98); MEAN PLATELET VOLUME 9.7 FL (7.4-10.4); MONOCYTES # (AUTO) 0.6 X10'3 (0-0.9); MONOCYTES % (AUTO) 6.9 % (2-12); NEUTROPHILS % (AUTO) 55.4 % (42-75); PLATELET COUNT 313 X10'3 (140-440); RED BLOOD COUNT 4.65 X10'6 (4.20-5.60); RED CELL DISTRIBUTION WIDTH 13.8 % (11.5-14.5); WHITE BLOOD COUNT 9.1 X10'3 (4.5-11.0)
[2021-08-28 14:48] LABS: ALANINE AMINOTRANSFERASE 80 U/L (12-78); ALBUMIN 4.4 G/DL (3.4-5.0); ALBUMIN/GLOBULIN RATIO 1.3 (1.1-1.5); ALKALINE PHOSPHATASE 93 IU/L (46-116); ANION GAP 12 (8-16); ASPARTATE AMINO TRANSFERASE 39 U/L (10-37); BILIRUBIN,TOTAL 0.5 MG/DL (0.1-1.0); BLOOD UREA NITROGEN 12 MG/DL (7-18); BUN/CREATININE RATIO 13.2 (6.6-38.0); CALCIUM 10.3 MG/DL (8.5-10.1); CHLORIDE 104 MMOL/L (99-107); CREATININE 0.91 MG/DL (0.40-0.90); GLUCOSE 187 MG/DL (70-104); POTASSIUM 3.7 MMOL/L (3.5-5.1); SODIUM 141 MMOL/L (135-145); TOTAL CARBON DIOXIDE 25.3 MMOL/L (24-32); TOTAL PROTEIN 7.8 G/DL (6.4-8.2); eGFR 63 ML/MIN
--- NOTE | 2021-08-28 15:39 | NUR ---
PT STATES THAT SHE IS SUICIDAL (NO PLAN) BECAUSE SHE HASN'T SLEPT IN WEEKS. REQUESTING SOMETHING FOR INSOMNIA AND TO BE ADMITTED TO A PSYCH FACILITY.
== END 2021-08-28 15:59 ==
LOC: ER 12:52
DX: G47.00 Insomnia, unspecified (principal); R07.89 Other chest pain; R06.02 Shortness of breath; E11.9 Type 2 diabetes mellitus without complications; G89.29 Other chronic pain; F41.9 Anxiety disorder, unspecified; F32.A Depression, unspecified; F20.9 Schizophrenia, unspecified; Z90.49 Acquired absence of other specified parts of digestive tract; Z90.710 Acquired absence of both cervix and uterus; Z72.89 Other problems related to lifestyle; Z60.2 Problems related to living alone; Z56.0 Unemployment, unspecified; Z79.82 Long term (current) use of aspirin; Z79.899 Other long term (current) drug therapy
CPT/HCPCS: 36415; 71045; 80053; 83880; 84484; 85025; 93005; 99285

== ENCOUNTER 2023-03-07 13:05 | Emergency (ER) | payer MEDICARE, MEDICAID ==
[~2023-03-07] VITALS: Ht 167.6 cm; Wt 77.3 kg
[~2023-03-07 13:05] MED LIST changes: -MECL-159 PO; +MECL-302 PO
[2023-03-07] MEDS ORDERED: naloxone 2mg/2ml inj IV STA (13:26)
--- NOTE | 2023-03-07 13:26 | NUR ---
DR MORENO MADE AWARE OF PT VS AND CONDITION. 2MG NARCAN ORDERED
[2023-03-07] MEDS ORDERED: normal saline 1000ML IV soln IVB ONE (13:30)
[2023-03-07 13:50] LABS: BASOPHILS % (AUTO) 0.3 % (0-1); EOSINOPHILS % (AUTO) 0.2 % (0-6); HEMATOCRIT 41.6 % (35.0-45.0); HEMOGLOBIN 13.9 g/dl (12.0-16.0); LYMPHOCYTES # (AUTO) 0.6 X10'3 (1.1-4.8); LYMPHOCYTES % (AUTO) 4.2 % (21-51); MEAN CORPUSCULAR HGB CONC 33.5 g/dL (33.0-36.5); MEAN CORPUSCULAR VOLUME 98.5 FL (78-98); MEAN PLATELET VOLUME 10.3 FL (7.4-10.4); MONOCYTES # (AUTO) 1.4 X10'3 (0-0.9); MONOCYTES % (AUTO) 10.3 % (2-12); NEUTROPHILS # (AUTO) 11.8 X10'3 (1.8-7.7); PLATELET COUNT 197 X10'3 (140-440); RED BLOOD COUNT 4.22 X10'6 (4.20-5.60); RED CELL DISTRIBUTION WIDTH 13.9 % (11.5-14.5); WHITE BLOOD COUNT 13.9 X10'3 (4.5-11.0)
[2023-03-07 14:01] LABS: ALANINE AMINOTRANSFERASE 50 U/L (12-78); ALBUMIN 3.5 G/DL (3.4-5.0); ALBUMIN/GLOBULIN RATIO 1.2 (1.1-1.5); ALKALINE PHOSPHATASE 94 IU/L (46-116); ANION GAP 8 (8-16); ASPARTATE AMINO TRANSFERASE 40 U/L (10-37); BILIRUBIN,TOTAL 0.3 MG/DL (0.1-1.0); BLOOD UREA NITROGEN 20 MG/DL (7-18); BUN/CREATININE RATIO 18.5 (10.0-20.0); CALCIUM 9.1 MG/DL (8.5-10.1); CHLORIDE 110 MMOL/L (99-107); CREATININE 1.08 MG/DL (0.40-0.90); GLUCOSE 163 MG/DL (70-104); POTASSIUM 3.8 MMOL/L (3.5-5.1); SODIUM 143 MMOL/L (135-145); TOTAL CARBON DIOXIDE 24.7 MMOL/L (24-32); TOTAL PROTEIN 6.4 G/DL (6.4-8.2); eCRCL 50 ML/MIN; eGFR 51 ML/MIN
[2023-03-07 17:14] LABS: BILIRUBIN,URINE NEGATIVE (Neg); CLARITY,URINE CLEAR (Clear); COLOR,URINE YELLOW (Yellow); GLUCOSE, URINE 250 mg/dl (Neg); KETONES,URINE NEGATIVE (Neg); LEUKOCYTE ESTERASE ,URINE NEGATIVE (Neg); NITRITES, URINE NEGATIVE (Neg); OCCULT BLOOD,URINE TRACE-INTACT (Neg); PROTEIN,URINE NEGATIVE (Neg); UROBILINOGEN,URINE 0.2 E.U/dL (0.2-1.0)
[2023-03-07 17:16] LABS: UA COLLECTION TYPE STRAIGHT CATH
[2023-03-07 17:20] LABS: URINE AMPHETAMINE SCREEN NEGATIVE (Neg); URINE BARBITUATE SCREEN NEGATIVE (Neg); URINE BENZODIAZEPINES SCREEN POSITIVE (Neg); URINE CANNABINOID SCREEN NEGATIVE (Neg); URINE COCAINE SCREEN NEGATIVE (Neg); URINE METHADONE SCREEN NEGATIVE (Neg); URINE OPIATE SCREEN NEGATIVE (Neg); URINE PHENCYCLIDINE SCREEN NEGATIVE (Neg)
[2023-03-07 17:28] LABS: BACTERIA,URINE NONE SEEN /HPF (Neg); RBC,URINE 0-2 /HPF (0-2); WBC,URINE 0-4 /HPF (0-4)
[2023-03-07 17:29] LABS: SQUAMOUS EPITHELIAL CELL,UR FEW /LPF (FEW)
[2023-03-07 17:49] VITALS: TEMP 98.6
[2023-03-07] MEDS ORDERED: normal saline 1000ml 1,000 ML IV STA (18:02)
[2023-03-07 21:45] VITALS: BP 133/57; PULSE 57; RESP 16; O2SAT 97
== END 2023-03-07 21:47 | disposition home or self-care (01) ==
LOC: ER 13:05
DX: R41.82 Altered mental status, unspecified (principal); E86.0 Dehydration; E11.9 Type 2 diabetes mellitus without complications; G89.29 Other chronic pain; M54.9 Dorsalgia, unspecified; F31.9 Bipolar disorder, unspecified; F20.9 Schizophrenia, unspecified; Z79.899 Other long term (current) drug therapy
CPT/HCPCS: 36415; 71045; 80053; 80178; 80305; 81001; 82140; 82948; 84145; 85025; 93005; 96361; 96374; 99285; J2310; J7030; C1758

== ENCOUNTER 2024-07-10 10:48 | Emergency (ER) | payer MEDICARE, MEDICAID ==
[~2024-07-10] VITALS: Ht 175.3 cm; Wt 88.2 kg
[~2024-07-10 10:48] MED LIST changes: -OLAN20TA34 PO; +OLAN20TA81 PO
[2024-07-10 11:14] VITALS: BP 110/58; PULSE 60; O2SAT 98
[2024-07-10 11:25] VITALS: RESP 16
[2024-07-10] MEDS: normal saline 1000ml 1,000 ML IV ONE (11:50)
[2024-07-10 12:12] LABS: BASOPHILS % (AUTO) 0.7 % (0-1); EOSINOPHILS # (AUTO) 0.2 X10'3 (0-0.9); EOSINOPHILS % (AUTO) 2.8 % (0-6); HEMATOCRIT 41.2 % (35.0-45.0); HEMOGLOBIN 13.9 g/dl (12.0-16.0); LYMPHOCYTES % (AUTO) 31.5 % (21-51); MEAN CORPUSCULAR HEMOGLOBIN 32.6 PG (27.0-31.0); MEAN CORPUSCULAR HGB CONC 33.7 g/dL (33.0-36.5); MEAN CORPUSCULAR VOLUME 96.7 FL (78-98); MONOCYTES # (AUTO) 0.5 X10'3 (0-0.9); MONOCYTES % (AUTO) 7.8 % (2-12); NEUTROPHILS # (AUTO) 3.6 X10'3 (1.8-7.7); NEUTROPHILS % (AUTO) 57.2 % (42-75); PLATELET COUNT 276 X10'3 (140-440); RED BLOOD COUNT 4.26 X10'6 (4.20-5.60); RED CELL DISTRIBUTION WIDTH 13.8 % (11.5-14.5); WHITE BLOOD COUNT 6.3 X10'3 (4.5-11.0)
[2024-07-10 12:24] LABS: ALBUMIN 3.6 G/DL (3.4-5.0); ANION GAP 5 (8-16); BLOOD UREA NITROGEN 18 MG/DL (7-18); BUN/CREATININE RATIO 19.8 (10.0-20.0); CHLORIDE 111 MMOL/L (99-107); CREATININE 0.91 MG/DL (0.40-0.90); ETHANOL < 10 MG/DL (<10); GLUCOSE 116 MG/DL (70-104); SODIUM 145 MMOL/L (135-145); TOTAL CARBON DIOXIDE 28.8 MMOL/L (24-32); eCRCL 65 ML/MIN; eGFR 62 ML/MIN
[2024-07-10 13:41] LABS: BILIRUBIN,URINE NEGATIVE (Neg); CLARITY,URINE CLEAR (Clear); COLOR,URINE YELLOW (Yellow); GLUCOSE, URINE NEGATIVE (Neg); KETONES,URINE NEGATIVE (Neg); LEUKOCYTE ESTERASE ,URINE SMALL (Neg); NITRITES, URINE NEGATIVE (Neg); OCCULT BLOOD,URINE NEGATIVE (Neg); PROTEIN,URINE NEGATIVE (Neg); UROBILINOGEN,URINE 0.2 E.U/dL (0.2-1.0)
[2024-07-10 13:43] LABS: UA COLLECTION TYPE CLN CATCH MIDSTREAM
[2024-07-10 13:48] LABS: BACTERIA,URINE NONE SEEN /HPF (Neg); MUCUS STRANDS FEW /LPF (Neg); RBC,URINE 0-2 /HPF (0-2); SQUAMOUS EPITHELIAL CELL,UR FEW /LPF (FEW)
[2024-07-10 13:49] LABS: URINE AMPHETAMINE SCREEN NEGATIVE (Neg); URINE BARBITUATE SCREEN NEGATIVE (Neg); URINE BENZODIAZEPINES SCREEN POSITIVE (Neg); URINE CANNABINOID SCREEN NEGATIVE (Neg); URINE COCAINE SCREEN NEGATIVE (Neg); URINE METHADONE SCREEN NEGATIVE (Neg); URINE OPIATE SCREEN NEGATIVE (Neg); URINE PHENCYCLIDINE SCREEN NEGATIVE (Neg)
[2024-07-10 18:14] VITALS: TEMP 97.2
== END 2024-07-10 18:15 | disposition home or self-care (01) ==
LOC: ER 10:49
DX: S00.81XA Abrasion of other part of head, initial encounter (principal); R42 Dizziness and giddiness; E11.9 Type 2 diabetes mellitus without complications; F41.9 Anxiety disorder, unspecified; F32.A Depression, unspecified; F20.9 Schizophrenia, unspecified; Z90.710 Acquired absence of both cervix and uterus; Z90.49 Acquired absence of other specified parts of digestive tract; Z79.82 Long term (current) use of aspirin; W19.XXXA Unspecified fall, initial encounter; Y93.89 Activity, other specified; Y92.009 Unspecified place in unspecified non-institutional (private) residence as the place of occurrence of the external cause; Y99.8 Other external cause status
CPT/HCPCS: 36415; 70450; 71045; 80048; 80305; 81001; 84484; 85025; 87088; 93005; 96360; 99285; G0480; J7030; 80320

== ENCOUNTER 2025-01-13 15:48 | Emergency (ER) | payer MEDICARE, MEDICAID ==
[~2025-01-13] VITALS: Ht 172.7 cm; Wt 90.9 kg
[~2025-01-13 15:48] MED LIST changes: -ASPI-1397 PO; -ATOR40TA72 PO; +CARI3CAP PO; -CHOL20002 PO; -CLON-568 PO; +CLON1TAB12 PO; +GABA-535 PO; -GABA300C PO; -LAMO200T10 PO; -MECL-302 PO; +METF-900 PO; +OLAN-40 PO; -OLAN20TA81 PO; -QUET400T13 PO; +TEMA30CA PO
--- NOTE | 2025-01-13 16:33 | Physician Documentation ---
History of Present Illness ~ Chief Complaint: Suicidal Ideation Stated Complaint: JOSEPH Time Seen by MD: 15:53 Primary Medical Doctor: DONTA Source: patient (13), old records Mode of Arrival: EMS HPI Patient comes in for evaluation, stating that she feels suicidal. She does not appear to have an actual plan at this moment but feels bad. She is apparently well known to some staff members here having been here previously. She has no complaints of any physical symptoms at this time. Medication Reconciliation Allergies: Coded Allergies: No Known Allergies (Unverified , 01/03/25) Scheduled Cariprazine Hydrochloride (Vraylar), 1 CAP PO DAILY, (Reported) Clonazepam (Clonazepam), 0.5 TAB PO PRN, (Reported) Gabapentin (Gabapentin), 1 CAP PO DAILY, (Reported) Hunter Carbonate* (Hunter Carbonate*), 1 TAB PO BID, (Reported) Metformin Hcl* (Metformin ER*), 1 TAB PO Q12H, (Reported) Olanzapine (Zyprexa), 2 TAB PO HS, (Reported) Temazepam (Temazepam), 2 CAP PO HSPRN, (Reported) Trazodone Hcl (Trazodone Hcl), 3 TAB PO HS, (Reported) Past Medical History Past Medical History: Vertigo, Diabetes, Chronic Back Pain, Anxiety, Depression, Schizophrenia Past Surgical History: cholecystectomy, hysterectomy Patient History: FH: diabetes mellitus FATHER Smoking Status: Unknown if ever smoked Alcohol Use: Occasionally Drug Use: none Lives with: Alone Lives In: Home Occupation: unemployed Review of Systems All Other Systems at this time: Reviewed and Negative Physical Exam Vital Signs: Temperature: 98.2, Source: Temporal, Heart Rate: 63, Respiratory Rate: 14, BP: 135/70, Pulse Oximetry: 98, Weight: 90.910 Oxygen Flow Rate: 0 Physical Exam General: Pt is awake, alert, oriented x4 in no acute distress and well appearing. Head: Normocephalic and atraumatic. Eyes: Conjunctiva normal. ENT: Mucous membranes moist. Neck: Supple. Chest: Clear to auscultation bilaterally, without rales, rhonchi, or wheezes. There is no accessory muscle use or retractions. Cardiac: Regular rate and rhythm without murmurs, gallops or rubs. Palpation of the chest wall is normal. Abd: Soft, nondistended, nontender, with normoactive bowel sounds. No guarding or rebound. Extremities: Within normal limits without cyanosis, clubbing, or edema. Skin: [place], warm and dry with no significant rash appreciated. Neuro: Cranial nerves II-XII grossly intact. The gait is normal. Progress Results/Orders Results/Orders Orders - KAYLIE CONTRERAS MD Urinalysis (01/13/25 16:25) Drug Screen, Urine (01/13/25 16:25) Med Rec (01/13/25 16:25) 1799.11 (01/13/25 16:25) Close Observation Level (01/13/25 16:25) Covid19 Binax Poc Result Entry (01/13/25 16:25) Regular Diet (01/13/25 Dinner) Completed Orders - KAYLIE CONTRERAS MD Cbc/Diff (01/13/25 16:25) Ethanol (01/13/25 16:25) TSH (01/13/25 16:25) BMP (01/13/25 16:25) Vital Signs 01/13/25 01/13/25 15:49 15:55 Temp 98.2 Pulse 63 Resp 14 14 B/P (MAP) 135/70 Pulse Ox 98 O2 Flow Rate 0 Laboratory Tests Test 01/13/25 16:40 White Blood Count 7.2 Red Blood Count 4.36 Hemoglobin 13.7 Hematocrit 41.2 Mean Corpuscular Volume 94.4 Mean Corpuscular Hemoglobin 31.5 H Mean Corpuscular Hemoglobin Concent 33.3 Red Cell Distribution Width 13.5 Platelet Count 265 Mean Platelet Volume 9.6 Neutrophils (%) (Auto) 58.8 Lymphocytes (%) (Auto) 30.1 Monocytes (%) (Auto) 8.4 Eosinophils (%) (Auto) 1.8 Basophils (%) (Auto) 0.9 Neutrophils # (Auto) 4.2 Lymphocytes # (Auto) 2.2 Monocytes # (Auto) 0.6 Eosinophils # (Auto) 0.1 Basophils # (Auto) 0.1 CBC Comment Sodium Level 141 Potassium Level 3.7 Chloride Level 109 H Carbon Dioxide Level 26.2 Anion Gap 6 L Blood Urea Nitrogen 11 Creatinine 0.84 Estimated GFR/1.73 m2 68 BUN/Creatinine Ratio 13.1 Glucose Level 140 H Calcium Level 9.9 Albumin 3.9 Thyroid Stimulating Hormone (TSH) 1.06 Chemistry Comments Ethyl Alcohol Level < 10 Re-Evaluation Re-Evaluation : Re-Evaluation Time: 17:23 Progress Pt medically cleared for psychiatric evaluation and management. Medical Decision Making Differential Dx:Considerations: Include: Anxiety, Bipolar disorder, Conversion disorder, Personality disorder, Substance abuse, Suicidal; Unlikely: Encephaloathy, Homicidal Departure Time of Disposition: 16:33 Disposition: 30 STILL A PATIENT Impression: Primary Impression: Suicidal ideation Condition: Stable Referrals: NO PRIMARY CARE PROVIDER (PCP) Signature Scribe Signature: Attestation: KAYLIE CONTRERAS MD Jan 13, 2025 16:33
[2025-01-13 16:50] LABS: MEAN PLATELET VOLUME 9.6 FL (7.4-10.4); RED CELL DISTRIBUTION WIDTH 13.5 % (11.5-14.5)
[2025-01-13 17:10] LABS: CREATININE 0.84 MG/DL (0.40-0.90); ETHANOL < 10 MG/DL (<10); TOTAL CARBON DIOXIDE 26.2 MMOL/L (24-32); eCRCL 68 ML/MIN; eGFR 68 ML/MIN
[2025-01-13 18:22] LABS: LEUKOCYTE ESTERASE ,URINE TRACE (Neg); NITRITES, URINE NEGATIVE (Neg); OCCULT BLOOD,URINE NEGATIVE (Neg); URINE AMPHETAMINE SCREEN NEGATIVE (Neg); URINE BARBITUATE SCREEN NEGATIVE (Neg); URINE BENZODIAZEPINES SCREEN NEGATIVE (Neg); URINE COCAINE SCREEN NEGATIVE (Neg); URINE METHADONE SCREEN NEGATIVE (Neg); URINE OPIATE SCREEN NEGATIVE (Neg); URINE PHENCYCLIDINE SCREEN NEGATIVE (Neg)
[2025-01-13 18:32] LABS: UA COLLECTION TYPE VOIDED
[2025-01-13 18:33] LABS: SQUAMOUS EPITHELIAL CELL,UR FEW /LPF (FEW)
[2025-01-13] MEDS ORDERED: DONE-46 PO (19:19)
[2025-01-13] MEDS ORDERED: LINA5TAB4 PO (19:19)
[2025-01-13] MEDS ORDERED: OLAN20TA81 PO (19:19)
[2025-01-13] MEDS ORDERED: GABA300T28 PO (19:19)
[2025-01-13] MEDS ORDERED: METF-1203 PO (19:19)
[2025-01-13] MEDS ORDERED: TEMA15CA5 PO (19:19)
[2025-01-13] MEDS ORDERED: OLAN-38 PO (19:19)
[2025-01-13] MEDS ORDERED: ATOR40TA71 PO (19:20)
[2025-01-13] MEDS ORDERED: GABA300C PO (20:04)
--- NOTE | 2025-01-14 02:23 | ELECTROCARDIOGRAPH REPORT ---
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
[2025-01-14] MEDS: METFORMIN 500 MG PO SCH (07:30)
[2025-01-14] MEDS: CARIPRAZINE HYDROCHLORIDE 3 MG PO SCH (08:00)
[2025-01-14] MEDS: donepezil 5mg tablet PO SCH (08:34)
[2025-01-14] MEDS: lithium carbonate 450mg CR tablet PO SCH (08:34)
[2025-01-14] MEDS: OLANZapine 5mg rapidly disint. tablet PO ONE (09:06)
[2025-01-14 12:17] VITALS: BP 122/74; PULSE 47; RESP 19; TEMP 97.1; O2SAT 98
== END 2025-01-14 12:45 | disposition home or self-care (01) ==
LOC: ER 15:48
DX: R45.851 Suicidal ideations (principal); R06.02 Shortness of breath; E11.9 Type 2 diabetes mellitus without complications; F20.9 Schizophrenia, unspecified; F41.9 Anxiety disorder, unspecified; F32.A Depression, unspecified; Z20.822 Contact with and (suspected) exposure to COVID-19; Z90.710 Acquired absence of both cervix and uterus; Z79.899 Other long term (current) drug therapy
CPT/HCPCS: 36415; 80048; 80305; 81001; 82948; 84443; 85025; 87811; 93005; 99284; C2617; G0480; 80320